=== PATIENT | female | born 1990 | race Caucasian/White ===

== ENCOUNTER 2019-02-13 16:58 | Observation (INO) ==
[2019-02-13] MEDS ORDERED: Ketorolac 15 MG/ML VIAL IVP ONE (20:16)
[2019-02-13] MEDS ORDERED: Ondansetron 4 MG/2 ML VIAL IVP ONE (20:16)
[2019-02-13] MEDS ORDERED: 0.9 % Sodium Chloride 1,000 ML IVC ONE (20:16)
[2019-02-13 20:47] LABS: Basophils % 0.2 %; Eosinophils % 0.2 %; Hematocrit 35.6 % (35.3-44.9); Hemoglobin 11.6 g/dL (11.5-15.4); Immature Granulocytes % 0.3 % (0-4); Lymphocytes # 1.5 K/mcL (0.6-4.6); Lymphocytes % 10.5 %; Mean Corpuscular HGB Conc 32.6 g/dL (31.6-35.5); Mean Corpuscular Hemoglobin 27.8 pg (28.0-33.3); Mean Corpuscular Volume 85.2 fL (83.0-100.0); Mean Platelet Volume 10.6 fL (9.4-12.4); Monocytes # 1.5 K/mcL (0.0-1.3); Monocytes % 10.5 %; Neutrophils # 11.1 K/mcL (1.6-8.9); Platelet Count 215 K/mcL (140-400); Red Blood Count 4.18 M/mcL (3.82-4.97); Red Cell Distribution Width 14.7 % (11.5-14.5); Segmented Neutrophils % 78.3 %; White Blood Count 14.2 K/mcL (4.3-11.1)
[2019-02-13 21:07] LABS: Alanine Aminotransferase 15 Units/L (7-52); Albumin 4.3 g/dL (3.5-5.7); Albumin/Globulin Ratio 1.4 (1.1-2.2); Alkaline Phosphatase 56 Units/L (34-104); Aspartate Amino Transferase 22 Units/L (13-39); BUN/Creatinine Ratio 17 (6-26); Bilirubin,Total 1.4 mg/dL (0.3-1.0); Blood Urea Nitrogen 14 mg/dL (6-20); Calcium 8.8 mg/dL (8.6-10.3); Carbon Dioxide 28 mEq/L (23-29); Chloride 96 mEq/L (98-107); Glucose 116 mg/dL (70-105); Osmolality,Calculated 285 (280-300); Potassium 3.6 mEq/L (3.5-5.1); Sodium 137 mEq/L (136-145); Total Protein 7.3 g/dL (6.4-8.9); eGFR For African Americans > 60 (> 60); eGFR For Non-African Americans > 60 (> 60)
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
--- NOTE | 2019-02-13 21:52 | Emergency Department Note ---
Disposition Clinical Impression: Right upper quadrant pain Nausea & vomiting Qualifiers: Vomiting type: unspecified Vomiting Intractability: unspecified Qualified Code(s): R11.2 - Nausea with vomiting, unspecified Disposition: Still a Patient Condition: Good Referrals: Mary Martinez DO [Primary Care Provider] - Forms: ED Satisfaction Letter, Work/School Release Time of Disposition: 01:00 General Adult HPI - General Chief complaint: ED General Medical Stated complaint: fever N/V Time Seen by Provider: 02/13/19 19:50 Source: patient Mode of arrival: ambulatory Limitations: no limitations - Related Data Home Medications Medication Instructions Recorded Confirmed Baclofen 5 mg PO DAILY 02/14/19 02/14/19 LORazepam [Ativan] 1 mg PO TID 02/14/19 02/14/19 Quetiapine Fumarate [Seroquel] 400 mg PO DAILY 02/14/19 02/14/19 Allergies Allergy/AdvReac Type Severity Reaction Status Date / Time ciprofloxacin [From Cipro] Allergy See Verified 05/05/18 15:12 Comments Penicillins Allergy See Verified 05/05/18 15:12 Comments vancomycin Allergy Cramping Verified 05/05/18 15:12 of the Muscles Past Medical History - Past Medical History Medical history: Reports: no medical history Psychiatric history: Reports: anxiety [employer]IL[employer] WORKER history: Reports: no [employer] WORKER history - Social History Smoking Status: Current every day smoker Smokeless Tobacco Status: No Alcohol use: Reports: none Drug use: Reports: opiates Physical Exam - General Limitations: no limitations General appearance: alert, in no apparent distress Course Vital Signs Temperature 97.3 F L 02/13/19 17:09 Pulse Rate 73 02/13/19 17:09 Respiratory Rate 20 02/13/19 17:09 Blood Pressure 112/70 02/13/19 17:09 O2 Sat by Pulse Oximetry 100 02/13/19 17:09 Temperature 97.3 F L 02/13/19 20:16 Pulse Rate 80 02/13/19 21:52 Respiratory Rate 16 02/13/19 21:52 Blood Pressure 107/73 02/13/19 21:52 O2 Sat by Pulse Oximetry 98 02/13/19 21:52 Oxygen Delivery Oxygen Delivery Room Air Medical Decision Making - Lab Data Result diagrams: 02/13/19 20:30 02/13/19 20:30 Lab Results 02/13/19 02/13/19 02/13/19 Range/Units 20:30 20:30 20:30 WBC 14.2 H (4.3-11.1) K/mcL RBC 4.18 (3.82-4.97) M/mcL Hgb 11.6 (11.5-15.4) g/dL Hct 35.6 (35.3-44.9) % MCV 85.2 (83.0-100.0) fL MCH 27.8 L (28.0-33.3) pg MCHC 32.6 (31.6-35.5) g/dL RDW 14.7 H (11.5-14.5) % Plt Count 215 (140-400) K/mcL MPV 10.6 (9.4-12.4) fL Immature Gran % 0.3 (0-4) % Seg Neutrophils % 78.3 % Lymphocytes % 10.5 % Monocytes % 10.5 % Eosinophils % 0.2 % Basophils % 0.2 % Neutrophils # 11.1 H (1.6-8.9) K/mcL Lymphocytes # 1.5 (0.6-4.6) K/mcL Monocytes # 1.5 H (0.0-1.3) K/mcL Eosinophils # 0.0 (0.0-0.6) K/mcL Basophils # 0.0 (0.0-0.2) K/mcL Sodium 137 (136-145) mEq/L Potassium 3.6 (3.5-5.1) mEq/L Chloride 96 L (98-107) mEq/L Carbon Dioxide 28 (23-29) mEq/L BUN 14 (6-20) mg/dL Creatinine 0.84 (0.60-1.20) mg/dL Est GFR ( Amer) > 60 (> 60) Est GFR (Non-Af Amer) > 60 (> 60) BUN/Creatinine Ratio 17 (6-26) Glucose 116 H (70-105) mg/dL Calculated Osmolality 285 (280-300) Calcium 8.8 (8.6-10.3) mg/dL Total Bilirubin 1.4 H (0.3-1.0) mg/dL AST 22 (13-39) Units/L ALT 15 (7-52) Units/L Alkaline Phosphatase 56 (34-104) Units/L Serum Total Protein 7.3 (6.4-8.9) g/dL Albumin 4.3 (3.5-5.7) g/dL Globulin 3.0 (2.4-3.5) g/dL Albumin/Globulin Ratio 1.4 (1.1-2.2) Lipase 13 (11-82) Units/L Urine Color (Yellow) Urine Clarity (Clear) Urine pH (5.0-8.0) pH Units Ur Specific [place] (1.010-1.025) Urine Protein (Neg-Trace) mg/dL Urine Glucose (UA) (Normal) mg/dL Urine Ketones (Negative) mg/dL Urine Blood (Negative) Urine Nitrite (Negative) Urine Bilirubin (Negative) Urine Urobilinogen (Normal) mg/dL Ur Leukocyte Esterase (Negative) Urine Microscopic RBC (0-3) per hpf Urine Microscopic WBC (0-3) per hpf Ur Squamous Epith Cells (None-Few) per lpf Urine Bacteria (None-Few) per hpf Hyaline Casts (None-Few) per lpf Ur Culture Indicated? (NO) Urine Test (Negative) Urine Opiates Screen (Jnxlzq=521) ng/mL Ur Buprenorphine Scrn (Cutoff=5) ng/mL Ur Barbiturates Screen (Vdodyp=596) ng/mL Ur Phencyclidine Scrn (Cutoff=25) ng/mL Ur Amphetamines Screen (Nqvlzd=7440) ng/mL U Benzodiazepines Scrn (Dyeytq=690) ng/mL Urine Cocaine Screen (Cutoff= 300) ng/mL U Marijuana (THC) Screen (Cutoff = 50) ng/mL Ur Drug Screen Interp Lyme Total Antibody (Negative) 02/13/19 02/14/19 02/14/19 Range/Units 20:30 00:01 00:01 WBC (4.3-11.1) K/mcL RBC (3.82-4.97) M/mcL Hgb (11.5-15.4) g/dL Hct (35.3-44.9) % MCV (83.0-100.0) fL MCH (28.0-33.3) pg MCHC (31.6-35.5) g/dL RDW (11.5-14.5) % Plt Count (140-400) K/mcL MPV (9.4-12.4) fL Immature Gran % (0-4) % Seg Neutrophils % % Lymphocytes % % Monocytes % % Eosinophils % % Basophils % % Neutrophils # (1.6-8.9) K/mcL Lymphocytes # (0.6-4.6) K/mcL Monocytes # (0.0-1.3) K/mcL Eosinophils # (0.0-0.6) K/mcL Basophils # (0.0-0.2) K/mcL Sodium (136-145) mEq/L Potassium (3.5-5.1) mEq/L Chloride (98-107) mEq/L Carbon Dioxide (23-29) mEq/L BUN (6-20) mg/dL Creatinine (0.60-1.20) mg/dL Est GFR ( Amer) (> 60) Est GFR (Non-Af Amer) (> 60) BUN/Creatinine Ratio (6-26) Glucose (70-105) mg/dL Calculated Osmolality (280-300) Calcium (8.6-10.3) mg/dL Total Bilirubin (0.3-1.0) mg/dL AST (13-39) Units/L ALT (7-52) Units/L Alkaline Phosphatase (34-104) Units/L Serum Total Protein (6.4-8.9) g/dL Albumin (3.5-5.7) g/dL Globulin (2.4-3.5) g/dL Albumin/Globulin Ratio (1.1-2.2) Lipase (11-82) Units/L Urine Color Dark Yellow (Yellow) Urine Clarity Clear (Clear) Urine pH 6.0 (5.0-8.0) pH Units Ur Specific [place] 1.024 (1.010-1.025) Urine Protein Trace (Neg-Trace) mg/dL Urine Glucose (UA) Normal (Normal) mg/dL Urine Ketones Trace H (Negative) mg/dL Urine Blood Trace H (Negative) Urine Nitrite Negative (Negative) Urine Bilirubin Negative (Negative) Urine Urobilinogen Normal (Normal) mg/dL Ur Leukocyte Esterase Trace H (Negative) Urine Microscopic RBC 5-15 H (0-3) per hpf Urine Microscopic WBC 5-15 H (0-3) per hpf Ur Squamous Epith Cells Many H (None-Few) per lpf Urine Bacteria None Seen (None-Few) per hpf Hyaline Casts None Seen (None-Few) per lpf Ur Culture Indicated? YES A (NO) Urine Test Negative (Negative) Urine Opiates Screen (Llbvif=066) ng/mL Ur Buprenorphine Scrn (Cutoff=5) ng/mL Ur Barbiturates Screen (Geyazs=030) ng/mL Ur Phencyclidine Scrn (Cutoff=25) ng/mL Ur Amphetamines Screen (Pgijxq=6015) ng/mL U Benzodiazepines Scrn (Azoqbl=237) ng/mL Urine Cocaine Screen (Cutoff= 300) ng/mL U Marijuana (THC) Screen (Cutoff = 50) ng/mL Ur Drug Screen Interp Lyme Total Antibody Negative (Negative) 02/14/19 Range/Units 00:01 WBC (4.3-11.1) K/mcL RBC (3.82-4.97) M/mcL Hgb (11.5-15.4) g/dL Hct (35.3-44.9) % MCV (83.0-100.0) fL MCH (28.0-33.3) pg MCHC (31.6-35.5) g/dL RDW (11.5-14.5) % Plt Count (140-400) K/mcL MPV (9.4-12.4) fL Immature Gran % (0-4) % Seg Neutrophils % % Lymphocytes % % Monocytes % % Eosinophils % % Basophils % % Neutrophils # (1.6-8.9) K/mcL Lymphocytes # (0.6-4.6) K/mcL Monocytes # (0.0-1.3) K/mcL Eosinophils # (0.0-0.6) K/mcL Basophils # (0.0-0.2) K/mcL Sodium (136-145) mEq/L Potassium (3.5-5.1) mEq/L Chloride (98-107) mEq/L Carbon Dioxide (23-29) mEq/L BUN (6-20) mg/dL Creatinine (0.60-1.20) mg/dL Est GFR ( Amer) (> 60) Est GFR (Non-Af Amer) (> 60) BUN/Creatinine Ratio (6-26) Glucose (70-105) mg/dL Calculated Osmolality (280-300) Calcium (8.6-10.3) mg/dL Total Bilirubin (0.3-1.0) mg/dL AST (13-39) Units/L ALT (7-52) Units/L Alkaline Phosphatase (34-104) Units/L Serum Total Protein (6.4-8.9) g/dL Albumin (3.5-5.7) g/dL Globulin (2.4-3.5) g/dL Albumin/Globulin Ratio (1.1-2.2) Lipase (11-82) Units/L Urine Color (Yellow) Urine Clarity (Clear) Urine pH (5.0-8.0) pH Units Ur Specific [place] (1.010-1.025) Urine Protein (Neg-Trace) mg/dL Urine Glucose (UA) (Normal) mg/dL Urine Ketones (Negative) mg/dL Urine Blood (Negative) Urine Nitrite (Negative) Urine Bilirubin (Negative) Urine Urobilinogen (Normal) mg/dL Ur Leukocyte Esterase (Negative) Urine Microscopic RBC (0-3) per hpf Urine Microscopic WBC (0-3) per hpf Ur Squamous Epith Cells (None-Few) per lpf Urine Bacteria (None-Few) per hpf Hyaline Casts (None-Few) per lpf Ur Culture Indicated? (NO) Urine Test (Negative) Urine Opiates Screen Positive H (Rlozvn=658) ng/mL Ur Buprenorphine Scrn Negative (Cutoff=5) ng/mL Ur Barbiturates Screen Negative (Srmclb=189) ng/mL Ur Phencyclidine Scrn Negative (Cutoff=25) ng/mL Ur Amphetamines Screen Positive H (Veshkc=2908) ng/mL U Benzodiazepines Scrn Negative (Gzsyqq=354) ng/mL Urine Cocaine Screen Negative (Cutoff= 300) ng/mL U Marijuana (THC) Screen Positive H (Cutoff = 50) ng/mL Ur Drug Screen Interp See Below Lyme Total Antibody (Negative) Attestation Statement - Attestation Attestation: I examined this patient and my medical decision-making was reviewed with the Resident Physician. I agree with the documented findings, disposition and treatment plan as described except to the extent set forth below. Patient 28-year-old female presents to the emergency department with chief complaint of generalized malaise and abdominal pain. Patient reports that she had multiple mosquito bites and then noticed that she started feeling very feverish and then noticed that she started having abdominal pain. Physical exam patient is awake and alert in mild discomfort. Abdomen soft there is tenderness to palpation in the right quadrant Medical decision-making laboratory studies were obtained patient have a mildly elevated bilirubin. Ultrasound showed evidence of thickened gallbladder wall and gallstones present and a sonographic Jain's was present. The patient's case was discussed with Dr. Love who is bonding agent for general surgery and he will evaluate the patient in the emergency department. He
[2019-02-13] MEDS ORDERED: Isovue-370 500 ML BOTTLE IVP ONE (23:28)
[2019-02-14 00:13] LABS: Bilirubin,Urine Negative (Negative); Blood,Urine Trace (Negative); Clarity,Urine Clear (Clear); Color,Urine Dark Yellow (Yellow); Glucose,Urine (UA) Normal (Normal); Ketones,Urine Trace mg/dL (Negative); Leukocyte Esterase,Urine Trace (Negative); Nitrite,Urine Negative (Negative); Protein,Urine Trace mg/dL (Neg-Trace); Specific Gravity,Urine 1.024 (1.010-1.025); Urobilinogen,Urine Normal (Normal)
[2019-02-14 00:15] LABS: Bacteria,Urine None Seen per hpf (None-Few); Hyaline Casts,Urine None Seen per lpf (None-Few); Squamous Epithelial Cell,Urine Many per lpf (None-Few)
[2019-02-14 00:35] LABS: Amphetamine Screen,Urine Positive ng/mL (Cutoff=1000); Barbiturate Screen,Urine Negative ng/mL (Cutoff=200); Benzodiazepines Screen,Urine Negative ng/mL (Cutoff=200); Cannabinoid Screen,Urine Positive ng/mL (Cutoff = 50); Cocaine Screen,Urine Negative ng/mL (Cutoff= 300); Opiate Screen,Urine Positive ng/mL (Cutoff=300); Phencyclidine Screen,Urine Negative ng/mL (Cutoff=25)
--- NOTE | 2019-02-14 00:50 | Emergency Department Note ---
Disposition Clinical Impression: Right upper quadrant pain, Elevated bilirubin Nausea & vomiting Qualifiers: Vomiting type: unspecified Vomiting Intractability: unspecified Qualified Code(s): R11.2 - Nausea with vomiting, unspecified Disposition: Admitted As Inpatient Condition: Good Time of Disposition: 05:18 Abdominal Pain HPI - General Chief Complaint: ED General Medical Stated Complaint: fever N/V Time Seen by Provider: 02/13/19 19:50 Source: patient Mode of arrival: ambulatory Limitations: no limitations Nursing Notes Reviewed: Yes Vital Signs Reviewed: Yes - History of Present Illness HPI Narrative: Patient was signed out to me by daytime physicians Dr. Traylor and Dr. Lombardi pending CT scan results and consultation with surgical specialists. Please see their note for further details. Pt Subjective Complaint: abdominal pain Pain Scale: 7 - Related Data Home Medications Medication Instructions Recorded Confirmed Baclofen 5 mg PO DAILY 02/14/19 02/14/19 LORazepam [Ativan] 1 mg PO TID 02/14/19 02/14/19 Quetiapine Fumarate [Seroquel] 400 mg PO DAILY 02/14/19 02/14/19 Allergies Allergy/AdvReac Type Severity Reaction Status Date / Time ciprofloxacin [From Cipro] Allergy See Verified 02/14/19 02:20 Comments Penicillins Allergy See Verified 02/14/19 02:20 Comments vancomycin Allergy Cramping Verified 02/14/19 02:20 of the Muscles All systems ED: reviewed and negative except as stated. 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 Traylor and Dr. Lombardi pending CT scan results and consultation with surgical specialists. Please see their note for further details. Imani is a 28-year-old female history of hepatitis C to presents emergency department with worsening right upper quadrant pain. Severe pain in the right upper quadrant with associated nausea vomiting. She has not been able to tolerate anything bilateral. She has a history of gallstones. Labs and images were performed here which showed a leukocytosis with elevated bilirubin of 1.4. Ultrasound revealed gallbladder wall thickening with concern for cholecystitis. Surgical specialty service was consulted and requested CT scan and possible admission to medicine. On my valuation she has mild tenderness to the right u pper quadrant by her abdomen is otherwise soft without any distention or rigidity. She did not have any Jain sign. No evidence of jaundice or square etc. She is alert and oriented. She is warm to the touch. CT scan with oral and IV contrast performed showed cholelithiasis. Dr. Kate zaragoza surgical specialists was notified of the results and will admit to his service. He does not believe this is a surgical emergency at this time and likely a chronic condition. He requests a hepatitis panel. Impression is right upper quadrant abdominal pain with cholelithiasis. Vital Signs Temperature 97.3 F L 02/13/19 17:09 Pulse Rate 73 02/13/19 17:09 Respiratory Rate 20 02/13/19 17:09 Blood Pressure 112/70 02/13/19 17:09 O2 Sat by Pulse Oximetry 100 02/13/19 17:09 Temperature 97.3 F L 02/13/19 20:16 Pulse Rate 78 02/14/19 02:21 Respiratory Rate 18 02/14/19 05:39 Blood Pressure 104/74 02/14/19 05:39 O2 Sat by Pulse Oximetry 99 02/14/19 02:21 Oxygen Delivery Oxygen Delivery Room Air Abdominal Pain - MDM Narrative Medical decision making narrative: Patient was discussed with my attending physician who agrees with ED management and final disposition. They independently evaluated the patient. Please refer to their attestation to this encounter for additional information. This note was generated by [employer] voice recognition software and as a result grammatical or spelling errors may occur using this program. - Medical Records Medical records reviewed: Yes I reviewed the patient's medical records. - Lab Data Lab results reviewed: Yes I reviewed the patient's lab results. Result diagrams: 02/13/19 20:30 02/13/19 20:30 Lab Results 02/13/19 02/13/19 02/13/19 Range/Units 20:30 20:30 20:30 WBC 14.2 H (4.3-11.1) K/mcL RBC 4.18 (3.82-4.97) M/mcL Hgb 11.6 (11.5-15.4) g/dL Hct 35.6 (35.3-44.9) % MCV 85.2 (83.0-100.0) fL MCH 27.8 L (28.0-33.3) pg MCHC 32.6 (31.6-35.5) g/dL RDW 14.7 H (11.5-14.5) % Plt Count 215 (140-400) K/mcL MPV 10.6 (9.4-12.4) fL Immature Gran % 0.3 (0-4) % Seg Neutrophils % 78.3 % Lymphocytes % 10.5 % Monocytes % 10.5 % Eosinophils % 0.2 % Basophils % 0.2 % Neutrophils # 11.1 H (1.6-8.9) K/mcL Lymphocytes # 1.5 (0.6-4.6) K/mcL Monocytes # 1.5 H (0.0-1.3) K/mcL Eosinophils # 0.0 (0.0-0.6) K/mcL Basophils # 0.0 (0.0-0.2) K/mcL Sodium 137 (136-145) mEq/L Potassium 3.6 (3.5-5.1) mEq/L Chloride 96 L (98-107) mEq/L Carbon Dioxide 28 (23-29) mEq/L BUN 14 (6-20) mg/dL Creatinine 0.84 (0.60-1.20) mg/dL Est GFR ( Amer) > 60 (> 60) Est GFR (Non-Af Amer) > 60 (> 60) BUN/Creatinine Ratio 17 (6-26) Glucose 116 H (70-105) mg/dL Calculated Osmolality 285 (280-300) Calcium 8.8 (8.6-10.3) mg/dL Total Bilirubin 1.4 H (0.3-1.0) mg/dL Direct Bilirubin (0.0-0.2) mg/dL Indirect Bilirubin (0.0-1.2) mg/dL AST 22 (13-39) Units/L ALT 15 (7-52) Units/L Alkaline Phosphatase 56 (34-104) Units/L Serum Total Protein 7.3 (6.4-8.9) g/dL Albumin 4.3 (3.5-5.7) g/dL Globulin 3.0 (2.4-3.5) g/dL Albumin/Globulin Ratio 1.4 (1.1-2.2) Lipase 13 (11-82) Units/L Urine Color (Yellow) Urine Clarity (Clear) Urine pH (5.0-8.0) pH Units Ur Specific [place] (1.010-1.025) Urine Protein (Neg-Trace) mg/dL Urine Glucose (UA) (Normal) mg/dL Urine Ketones (Negative) mg/dL Urine Blood (Negative) Urine Nitrite (Negative) Urine Bilirubin (Negative) Urine Urobilinogen (Normal) mg/dL Ur Leukocyte Esterase (Negative) Urine Microscopic RBC (0-3) per hpf Urine Microscopic WBC (0-3) per hpf Ur Squamous Epith Cells (None-Few) per lpf Urine Bacteria (None-Few) per hpf Hyaline Casts (None-Few) per lpf Ur Culture Indicated? (NO) Urine Test (Negative) Urine Opiates Screen (Eefiyn=448) ng/mL Ur Buprenorphine Scrn (Cutoff=5) ng/mL Ur Barbiturates Screen (Jmcfnz=103) ng/mL Ur Phencyclidine Scrn (Cutoff=25) ng/mL Ur Amphetamines Screen (Hykozo=8179) ng/mL U Benzodiazepines Scrn (Uxgodd=502) ng/mL Urine Cocaine Screen (Cutoff= 300) ng/mL U Marijuana (THC) Screen (Cutoff = 50) ng/mL Ur Drug Screen Interp Lyme Total Antibody (Negative) 02/13/19 02/14/19 02/14/19 Range/Units 20:30 00:01 00:01 WBC (4.3-11.1) K/mcL RBC (3.82-4.97) M/mcL Hgb (11.5-15.4) g/dL Hct (35.3-44.9) % MCV (83.0-100.0) fL MCH (28.0-33.3) pg MCHC (31.6-35.5) g/dL RDW (11.5-14.5) % Plt Count (140-400) K/mcL MPV (9.4-12.4) fL Immature Gran % (0-4) % Seg Neutrophils % % Lymphocytes % % Monocytes % % Eosinophils % % Basophils % % Neutrophils # (1.6-8.9) K/mcL Lymphocytes # (0.6-4.6) K/mcL Monocytes # (0.0-1.3) K/mcL Eosinophils # (0.0-0.6) K/mcL Basophils # (0.0-0.2) K/mcL Sodium (136-145) mEq/L Potassium (3.5-5.1) mEq/L Chloride (98-107) mEq/L Carbon Dioxide (23-29) mEq/L BUN (6-20) mg/dL Creatinine (0.60-1.20) mg/dL Est GFR ( Amer) (> 60) Est GFR (Non-Af Amer) (> 60) BUN/Creatinine Ratio (6-26) Glucose (70-105) mg/dL Calculated Osmolality (280-300) Calcium (8.6-10.3) mg/dL Total Bilirubin (0.3-1.0) mg/dL Direct Bilirubin (0.0-0.2) mg/dL Indirect Bilirubin (0.0-1.2) mg/dL AST (13-39) Units/L ALT (7-52) Units/L Alkaline Phosphatase (34-104) Units/L Serum Total Protein (6.4-8.9) g/dL Albumin (3.5-5.7) g/dL Globulin (2.4-3.5) g/dL Albumin/Globulin Ratio (1.1-2.2) Lipase (11-82) Units/L Urine Color Dark Yellow (Yellow) Urine Clarity Clear (Clear) Urine pH 6.0 (5.0-8.0) pH Units Ur Specific [place] 1.024 (1.010-1.025) Urine Protein Trace (Neg-Trace) mg/dL Urine Glucose (UA) Normal (Normal) mg/dL Urine Ketones Trace H (Negative) mg/dL Urine Blood Trace H (Negative) Urine Nitrite Negative (Negative) Urine Bilirubin Negative (Negative) Urine Urobilinogen Normal (Normal) mg/dL Ur Leukocyte Esterase Trace H (Negative) Urine Microscopic RBC 5-15 H (0-3) per hpf Urine Microscopic WBC 5-15 H (0-3) per hpf Ur Squamous Epith Cells Many H (None-Few) per lpf Urine Bacteria None Seen (None-Few) per hpf Hyaline Casts None Seen (None-Few) per lpf Ur Culture Indicated? YES A (NO) Urine Test Negative (Negative) Urine Opiates Screen (Iexpvc=723) ng/mL Ur Buprenorphine Scrn (Cutoff=5) ng/mL Ur Barbiturates Screen (Pfknxf=720) ng/mL Ur Phencyclidine Scrn (Cutoff=25) ng/mL Ur Amphetamines Screen (Leqpze=4163) ng/mL U Benzodiazepines Scrn (Fxlnoa=787) ng/mL Urine Cocaine Screen (Cutoff= 300) ng/mL U Marijuana (THC) Screen (Cutoff = 50) ng/mL Ur Drug Screen Interp Lyme Total Antibody Negative (Negative) 02/14/19 02/14/19 Range/Units 00:01 03:56 WBC (4.3-11.1) K/mcL RBC (3.82-4.97) M/mcL Hgb (11.5-15.4) g/dL Hct (35.3-44.9) % MCV (83.0-100.0) fL MCH (28.0-33.3) pg MCHC (31.6-35.5) g/dL RDW (11.5-14.5) % Plt Count (140-400) K/mcL MPV (9.4-12.4) fL Immature Gran % (0-4) % Seg Neutrophils % % Lymphocytes % % Monocytes % % Eosinophils % % Basophils % % Neutrophils # (1.6-8.9) K/mcL Lymphocytes # (0.6-4.6) K/mcL Monocytes # (0.0-1.3) K/mcL Eosinophils # (0.0-0.6) K/mcL Basophils # (0.0-0.2) K/mcL Sodium (136-145) mEq/L Potassium (3.5-5.1) mEq/L Chloride (98-107) mEq/L Carbon Dioxide (23-29) mEq/L BUN (6-20) mg/dL Creatinine (0.60-1.20) mg/dL Est GFR ( Amer) (> 60) Est GFR (Non-Af Amer) (> 60) BUN/Creatinine Ratio (6-26) Glucose (70-105) mg/dL Calculated Osmolality (280-300) Calcium (8.6-10.3) mg/dL Total Bilirubin 0.8 (0.3-1.0) mg/dL Direct Bilirubin 0.2 (0.0-0.2) mg/dL Indirect Bilirubin 0.6 (0.0-1.2) mg/dL AST 19 (13-39) Units/L ALT 14 (7-52) Units/L Alkaline Phosphatase 50 (34-104) Units/L Serum Total Protein 6.2 L (6.4-8.9) g/dL Albumin 3.8 (3.5-5.7) g/dL Globulin 2.4 (2.4-3.5) g/dL Albumin/Globulin Ratio 1.6 (1.1-2.2) Lipase (11-82) Units/L Urine Color (Yellow) Urine Clarity (Clear) Urine pH (5.0-8.0) pH Units Ur Specific [place] (1.010-1.025) Urine Protein (Neg-Trace) mg/dL Urine Glucose (UA) (Normal) mg/dL Urine Ketones (Negative) mg/dL Urine Blood (Negative) Urine Nitrite (Negative) Urine Bilirubin (Negative) Urine Urobilinogen (Normal) mg/dL Ur Leukocyte Esterase (Negative) Urine Microscopic RBC (0-3) per hpf Urine Microscopic WBC (0-3) per hpf Ur Squamous Epith Cells (None-Few) per lpf Urine Bacteria (None-Few) per hpf Hyaline Casts (None-Few) per lpf Ur Culture Indicated? (NO) Urine Test (Negative) Urine Opiates Screen Positive H (Atgsrq=507) ng/mL Ur Buprenorphine Scrn Negative (Cutoff=5) ng/mL Ur Barbiturates Screen Negative (Fpivse=340) ng/mL Ur Phencyclidine Scrn Negative (Cutoff=25) ng/mL Ur Amphetamines Screen Positive H (Fqxayh=0087) ng/mL U Benzodiazepines Scrn Negative (Hwiglz=052) ng/mL Urine Cocaine Screen Negative (Cutoff= 300) ng/mL U Marijuana (THC) Screen Positive H (Cutoff = 50) ng/mL Ur Drug Screen Interp See Below Lyme Total Antibody (Negative) - Radiology Data Radiology results reviewed: Yes I reviewed the patient's radiology results. Gallbladder Ultrasound 02/13/19 20:16 IMPRESSION: Gallstones in the gallbladder with borderline gallbladder wall thickening and positive sonographic Jain sign. In the appropriate clinical setting, findings may be consistent with cholecystitis. A nuclear medicine hepatobiliary scan is recommended for further evaluation. Fatty infiltration of the liver D/ / Reginaldo Hyman MD / Reginalod Hyman MD Interpreting Provider: Reginaldo Hyman MD Abdomen/Pelvis CT 02/14/19 00:00 IMPRESSION: Chronic cholelithiasis. Gastroesophageal reflux. Mild thickening of the wall of distal esophagus. Suggest upper endoscopy in the near future on nonurgent basis. D/ / Zina Todd MD / Zina Todd MD Interpreting Provider: Zina Todd MD Attestation Statement - Attestation Attestation: I, Raji Espinoza MD, personally evaluated this patient and discussed their management with the resident physician. I reviewed the resident's note and agree with the documented findings, medical decision making, and plan of care. This patient was signed out at shift change from Dr. Lombardi and Dr. Traylor. Please refer to their notes for complete details of the history and physical examination. Patient had a workup for nausea vomiting and fever and right upper quadrant pain. Ultrasound was obtained and cholecystitis was suspected. At shift change she is awaiting a CT of the abdomen and pelvis with IV and oral c ontrast. She was evaluated by the surgeon, Dr. Love, who requested the CT. On examination patient is a well-developed well-nourished female in no acute distress. She is alert and oriented 3. There is no cyanosis or diaphoresis. Breath sounds are clear and equal bilaterally. Heart regular rate and rhythm. Abdomen is soft with normal bowel sounds. There is mild right upper quadrant tenderness on direct palpation. CT showed chronic cholelithiasis. Patient was admitted to the surgical service by Dr. Love.
[2019-02-14 04:28] LABS: Albumin 3.8 g/dL (3.5-5.7); Albumin/Globulin Ratio 1.6 (1.1-2.2); Bilirubin,Direct 0.2 mg/dL (0.0-0.2); Bilirubin,Indirect 0.6 mg/dL (0.0-1.2); Bilirubin,Total 0.8 mg/dL (0.3-1.0); Globulin 2.4 g/dL (2.4-3.5); Total Protein 6.2 g/dL (6.4-8.9)
[2019-02-14] MEDS ORDERED: Ondansetron ODT 4 MG TAB.RAPDIS SL PRN (06:50)
[2019-02-14] MEDS ORDERED: 0.9 % Sodium Chloride 1,000 ML IVC SCH (07:00)
[2019-02-14 07:28] LABS: Hepatitis B Surface Antigen Nonreactive (Nonreactive)
[2019-02-14 07:57] LABS: Hepatitis B Core IgM Nonreactive (Nonreactive)
[2019-02-14 07:59] LABS: Hepatitis A Antibody IgM Nonreactive (Nonreactive)
[2019-02-14 09:58] LABS: Hepatitis C Virus Antibody Reactive (Nonreactive)
[2019-02-14] MEDS ORDERED: Acetaminophen 325 MG TABLET PO PRN (10:48)
[2019-02-14 10:55] LABS: Basophils % 0.4 %; Eosinophils # 0.1 K/mcL (0.0-0.6); Eosinophils % 1.3 %; Hematocrit 31.2 % (35.3-44.9); Hemoglobin 10.2 g/dL (11.5-15.4); Immature Granulocytes % 0.1 % (0-4); Lymphocytes # 1.5 K/mcL (0.6-4.6); Mean Corpuscular HGB Conc 32.7 g/dL (31.6-35.5); Mean Corpuscular Hemoglobin 27.9 pg (28.0-33.3); Mean Corpuscular Volume 85.5 fL (83.0-100.0); Monocytes # 0.9 K/mcL (0.0-1.3); Monocytes % 13.9 %; Neutrophils # 4.2 K/mcL (1.6-8.9); Platelet Count 191 K/mcL (140-400); Red Blood Count 3.65 M/mcL (3.82-4.97); Red Cell Distribution Width 14.5 % (11.5-14.5); Segmented Neutrophils % 62.3 %; White Blood Count 6.7 K/mcL (4.3-11.1)
[2019-02-14 11:22] LABS: Alanine Aminotransferase 14 Units/L (7-52); Albumin 3.6 g/dL (3.5-5.7); Albumin/Globulin Ratio 1.6 (1.1-2.2); Alkaline Phosphatase 46 Units/L (34-104); Aspartate Amino Transferase 19 Units/L (13-39); BUN/Creatinine Ratio 15 (6-26); Bilirubin,Total 0.7 mg/dL (0.3-1.0); Blood Urea Nitrogen 13 mg/dL (6-20); Carbon Dioxide 29 mEq/L (23-29); Chloride 97 mEq/L (98-107); Globulin 2.2 g/dL (2.4-3.5); Glucose 100 mg/dL (70-105); Osmolality,Calculated 274 (280-300); Potassium 3.3 mEq/L (3.5-5.1); Sodium 132 mEq/L (136-145); Total Protein 5.8 g/dL (6.4-8.9); eGFR For African Americans > 60 (> 60); eGFR For Non-African Americans > 60 (> 60)
--- NOTE | 2019-02-14 13:08 | Acute Care Surgery H&P ---
Date of Encounter: 02/14/19 Time of Encounter: 13:01 Assessment and Plan (1) Right upper quadrant pain Current Visit: Yes Status: Acute 28F with cholelithiaiss, no acute cholecystitis; currently tolerating CLD; currently positive for three ilicit drugs ADAT okay for PO abx x 7 days if tolerates diet, then okay to follow up in my office in 1-2 weeks for elective cholecystectomy hep c panel The assessment and plan as outlined above was discussed with the patient and/or family members who expressed understanding and agreement. All questions were ans wered. History of Present Illness Chief complaint: abdominal pain HPI: Ms. Kulkarni is a 28 year old female PMH significant for prior drug abuse (narcotics), hepatitis C (never been treated), recent incarceration as recent as 6 months ago who has a long standing history of RUQ pain with radiation to her right shoulder. When talking with the patient she is unable to definitively relate her pain to food. In addition reports a fever of 102. A CT scan was obtained which demonstrated cholelithiasis and mild thickening of the ga llbladder wall. General surgery was consulted for management recommendations. Of note, she did test positive for THC, amphetamine and opiates. Past Med Surg Social Fam HX - Past Medical History Medical history: no medical history Additional medical history: c4 c7 fusion Psychiatric history: anxiety - Past Surgical History Additional surgical history: c-4-c-7 fusion - Social History Smoking Status: Current every day smoker Smokeless Tobacco Status: No Alcohol use: none Drug use: opiates - Additional Family History Additional family history: non contributory Medications and Allergies Baclofen 5 mg PO DAILY 02/14/19 [History] LORazepam [Ativan] 1 mg PO TID 02/14/19 [History] Quetiapine Fumarate [Seroquel] 400 mg PO DAILY 02/14/19 [History] Allergy/AdvReac Type Severity Reaction Status Date / Time ciprofloxacin [From Cipro] Allergy See Verified 02/14/19 02:20 Comments Penicillins Allergy See Verified 02/14/19 02:20 Comments vancomycin Allergy Cramping Verified 02/14/19 02:20 of the Muscles Review of Systems All systems PM: 12 point ROS negative besides HPI findings General Surgery Exam Initial Vital Signs Temp Pulse Resp BP Pulse Ox 97.3 F L 73 20 112/70 100 02/13/19 17:09 02/13/19 17:09 02/13/19 17:09 02/13/19 17:09 02/13/19 17:09 - General physical appearance no distress - Eyes other (no scleral icterus) - Respiratory normal expansion, normal respiratory effort - Cardiovascular Cardiovascular exam: Present: RRR - Abdomen Abdomen general surgery: Present: soft, tender (non peritoneal) Abdominal Tenderness: Present: RUQ - Integumentary Integumentary general surgery: Present: warm and dry, no abnormal pigmentation - Neurologic Present: CN 2-12 grossly intact - Musculoskeletal Present: normal posture - Psychiatric Psychiatric general surgery: Present: A&Ox3 Results - Labs 02/14/19 10:32 02/14/19 10:32 Abnormal lab results WBC 14.2 K/mcL (4.3-11.1) H 02/13/19 20:30 RBC 3.65 M/mcL (3.82-4.97) L 02/14/19 10:32 Hgb 10.2 g/dL (11.5-15.4) L 02/14/19 10:32 Hct 31.2 % (35.3-44.9) L 02/14/19 10:32 MCH 27.9 pg (28.0-33.3) L 02/14/19 10:32 RDW 14.7 % (11.5-14.5) H 02/13/19 20:30 Neutrophils # 11.1 K/mcL (1.6-8.9) H 02/13/19 20:30 Monocytes # 1.5 K/mcL (0.0-1.3) H 02/13/19 20:30 Sodium 132 mEq/L (136-145) L 02/14/19 10:32 Potassium 3.3 mEq/L (3.5-5.1) L 02/14/19 10:32 Chloride 97 mEq/L (98-107) L 02/14/19 10:32 Glucose 116 mg/dL (70-105) H 02/13/19 20:30 Calculated Osmolality 274 (280-300) L 02/14/19 10:32 Calcium 8.0 mg/dL (8.6-10.3) L 02/14/19 10:32 Total Bilirubin 1.4 mg/dL (0.3-1.0) H 02/13/19 20:30 Serum Total Protein 5.8 g/dL (6.4-8.9) L 02/14/19 10:32 Globulin 2.2 g/dL (2.4-3.5) L 02/14/19 10:32 Urine Ketones Trace mg/dL (Negative) H 02/14/19 00:01 Urine Blood Trace (Negative) H 02/14/19 00:01 Ur Leukocyte Esterase Trace (Negative) H 02/14/19 00:01 Urine Microscopic RBC 5-15 per hpf (0-3) H 02/14/19 00:01 Urine Microscopic WBC 5-15 per hpf (0-3) H 02/14/19 00:01 Ur Squamous Epith Cells Many per lpf (None-Few) H 02/14/19 00:01 Ur Culture Indicated? YES (NO) A 02/14/19 00:01 Urine Opiates Screen Positive ng/mL (Oknfip=518) H 02/14/19 00:01 Ur Amphetamines Screen Positive ng/mL (Zitveh=2761) H 02/14/19 00:01 U Marijuana (THC) Screen Positive ng/mL (Cutoff = 50) H 02/14/19 00:01 Hepatitis C Ab Screen Reactive (Nonreactive) H 02/13/19 05:17 Diabetes panel 02/13/19 02/14/19 02/14/19 Range/Units 20:30 03:56 10:32 Sodium 137 132 L (136-145) mEq/L Potassium 3.6 3.3 L (3.5-5.1) mEq/L Chloride 96 L 97 L (98-107) mEq/L Carbon Dioxide 28 29 (23-29) mEq/L BUN 14 13 (6-20) mg/dL Creatinine 0.84 0.88 (0.60-1.20) mg/dL Glucose 116 H 100 (70-105) mg/dL Calcium 8.8 8.0 L (8.6-10.3) mg/dL AST 22 19 19 (13-39) Units/L ALT 15 14 14 (7-52) Units/L Alkaline Phosphatase 56 50 46 (34-104) Units/L Albumin 4.3 3.8 3.6 (3.5-5.7) g/dL Calcium panel 02/13/19 02/14/19 02/14/19 Range/Units 20:30 03:56 10:32 Calcium 8.8 8.0 L (8.6-10.3) mg/dL Albumin 4.3 3.8 3.6 (3.5-5.7) g/dL Pituitary panel 02/13/19 02/14/19 Range/Units 20:30 10:32 Sodium 137 132 L (136-145) mEq/L Potassium 3.6 3.3 L (3.5-5.1) mEq/L Chloride 96 L 97 L (98-107) mEq/L Carbon Dioxide 28 29 (23-29) mEq/L BUN 14 13 (6-20) mg/dL Creatinine 0.84 0.88 (0.60-1.20) mg/dL Glucose 116 H 100 (70-105) mg/dL Calcium 8.8 8.0 L (8.6-10.3) mg/dL Adrenal panel 02/13/19 02/14/19 02/14/19 Range/Units 20:30 03:56 10:32 Sodium 137 132 L (136-145) mEq/L Potassium 3.6 3.3 L (3.5-5.1) mEq/L Chloride 96 L 97 L (98-107) mEq/L Carbon Dioxide 28 29 (23-29) mEq/L BUN 14 13 (6-20) mg/dL Creatinine 0.84 0.88 (0.60-1.20) mg/dL Glucose 116 H 100 (70-105) mg/dL Calcium 8.8 8.0 L (8.6-10.3) mg/dL Total Bilirubin 1.4 H 0.8 0.7 (0.3-1.0) mg/dL AST 22 19 19 (13-39) Units/L ALT 15 14 14 (7-52) Units/L Alkaline Phosphatase 56 50 46 (34-104) Units/L Albumin 4.3 3.8 3.6 (3.5-5.7) g/dL All other labs normal. - Imaging CT scan - abdomen: report reviewed, image reviewed CT scan - pelvis: report reviewed, image reviewed
--- NOTE | 2019-02-14 13:19 | Discharge Summary ---
Orders not resulted at time of discharge: Pending orders 02/14/19 00:01 Culture,Urine [RM] Stat 02/14/19 10:32 Hepatitis C Qnt Reflx Genotype Routine Hepatitis C Virus Antibody Routine Date of Encounter: 02/14/19 Time of Encounter: 13:15 - Discharge Diagnosis (1) Right upper quadrant pain Priority: Primary Status: Acute Comments: 28F with RUQ; currently tolerating a diet; also with current positive drug tests; can plan for elective surgery as she is not acutely ill; diet as tolerated PO abx (5 days of augmentin follow up in one week in my clinic; General Surgery Exam Initial Vital Signs Temp Pulse Resp BP Pulse Ox 97.3 F L 73 20 112/70 100 02/13/19 17:09 02/13/19 17:09 02/13/19 17:09 02/13/19 17:09 02/13/19 17:09 - General physical appearance no distress - Eyes other (no scleral icterus) - Respiratory normal expansion, normal respiratory effort - Cardiovascular Cardiovascular exam: Present: RRR - Abdomen Abdomen general surgery: Present: soft, tender (non peritoneal, improved) - Integumentary Integumentary general surgery: Present: warm and dry, no abnormal pigmentation - Neurologic Present: CN 2-12 grossly intact - Musculoskeletal Present: normal posture - Psychiatric Psychiatric general surgery: Present: A&Ox3 - Hospital Course Hospital course: Ms. Kulkarni is a 28 year old female - Time Spent with Patient Total time spent providing and/or coordinating discharge services: Greater than 30 minutes - Discharge Medications Prescriptions: New Amoxicillin/Clavulanate [Augmentin] 875 mg PO BIDWM 5 Days #10 tablet Continued LORazepam [Ativan] 1 mg PO TID Baclofen 5 mg PO DAILY Quetiapine Fumarate [Seroquel] 400 mg PO DAILY Home Medications: Amoxicillin/Clavulanate [Augmentin] 875 mg PO BIDWM 5 Days #10 tablet 02/14/19 [Rx] Baclofen 5 mg PO DAILY 02/14/19 [History] LORazepam [Ativan] 1 mg PO TID 02/14/19 [History] Quetiapine Fumarate [Seroquel] 400 mg PO DAILY 02/14/19 [History] Allergies/Adverse Reactions: Allergy/AdvReac Type Severity Reaction Status Date / Time ciprofloxacin [From Cipro] Allergy See Verified 02/14/19 02:20 Comments Penicillins Allergy See Verified 02/14/19 02:20 Comments vancomycin Allergy Cramping Verified 02/14/19 02:20 of the Muscles Date of admission: 02/14/19 05:15 Primary care physician: Mary Martinez Consults: 02/13/19 23:28 Consult to Surgery [CONS] Stat Consulting Provider: Acute Care Surgery Reason for Consult: RUQ abdominal pain Time Notified: 23:29 Call Completed: Yes Discharging clinician: Brayden Love Anticipated date of discharge: 02/14/19 Labs on day of discharge: Labs from last 24 hours 02/14/19 02/14/19 02/14/19 10:32 10:32 03:56 WBC 6.7 D RBC 3.65 L Hgb 10.2 L Hct 31.2 L MCV 85.5 MCH 27.9 L MCHC 32.7 RDW 14.5 Plt Count 191 MPV 11.0 Immature Gran % 0.1 Seg Neutrophils % 62.3 Lymphocytes % 22.0 Monocytes % 13.9 Eosinophils % 1.3 Basophils % 0.4 Neutrophils # 4.2 Lymphocytes # 1.5 Monocytes # 0.9 Eosinophils # 0.1 Basophils # 0.0 Sodium 132 L Potassium 3.3 L Chloride 97 L Carbon Dioxide 29 BUN 13 Creatinine 0.88 Est GFR ( Amer) > 60 Est GFR (Non-Af Amer) > 60 BUN/Creatinine Ratio 15 Glucose 100 Calculated Osmolality 274 L Calcium 8.0 L Total Bilirubin 0.7 0.8 Direct Bilirubin 0.2 Indirect Bilirubin 0.6 AST 19 19 ALT 14 14 Alkaline Phosphatase 46 50 Serum Total Protein 5.8 L 6.2 L Albumin 3.6 3.8 Globulin 2.2 L 2.4 Albumin/Globulin Ratio 1.6 1.6 Lipase Urine Color Urine Clarity Urine pH Ur Specific [place] Urine Protein Urine Glucose (UA) Urine Ketones Urine Blood Urine Nitrite Urine Bilirubin Urine Urobilinogen Ur Leukocyte Esterase Urine Microscopic RBC Urine Microscopic WBC Ur Squamous Epith Cells Urine Bacteria Hyaline Casts Ur Culture Indicated? Urine Test Urine Opiates Screen Ur Buprenorphine Scrn Ur Barbiturates Screen Ur Phencyclidine Scrn Ur Amphetamines Screen U Benzodiazepines Scrn Urine Cocaine Screen U Marijuana (THC) Screen Ur Drug Screen Interp Lyme Total Antibody Hepatitis A IgM Ab Hep Bs Antigen Hep B Core IgM Ab Hepatitis C Ab Screen 02/14/19 02/14/19 02/14/19 00:01 00:01 00:01 WBC RBC Hgb Hct MCV MCH MCHC RDW Plt Count MPV Immature Gran % Seg Neutrophils % Lymphocytes % Monocytes % Eosinophils % Basophils % Neutrophils # Lymphocytes # Monocytes # Eosinophils # Basophils # Sodium Potassium Chloride Carbon Dioxide BUN Creatinine Est GFR ( Amer) Est GFR (Non-Af Amer) BUN/Creatinine Ratio Glucose Calculated Osmolality Calcium Total Bilirubin Direct Bilirubin Indirect Bilirubin AST ALT Alkaline Phosphatase Serum Total Protein Albumin Globulin Albumin/Globulin Ratio Lipase Urine Color Dark Yellow Urine Clarity Clear Urine pH 6.0 Ur Specific [place] 1.024 Urine Protein Trace Urine Glucose (UA) Normal Urine Ketones Trace H Urine Blood Trace H Urine Nitrite Negative Urine Bilirubin Negative Urine Urobilinogen Normal Ur Leukocyte Esterase Trace H Urine Microscopic RBC 5-15 H Urine Microscopic WBC 5-15 H Ur Squamous Epith Cells Many H Urine Bacteria None Seen Hyaline Casts None Seen Ur Culture Indicated? YES A Urine Test Negative Urine Opiates Screen Positive H Ur Buprenorphine Scrn Negative Ur Barbiturates Screen Negative Ur Phencyclidine Scrn Negative Ur Amphetamines Screen Positive H U Benzodiazepines Scrn Negative Urine Cocaine Screen Negative U Marijuana (THC) Screen Positive H Ur Drug Screen Interp See Below Lyme Total Antibody Hepatitis A IgM Ab Hep Bs Antigen Hep B Core IgM Ab Hepatitis C Ab Screen 02/13/19 02/13/19 02/13/19 20:30 20:30 20:30 WBC RBC Hgb Hct MCV MCH MCHC RDW Plt Count MPV Immature Gran % Seg Neutrophils % Lymphocytes % Monocytes % Eosinophils % Basophils % Neutrophils # Lymphocytes # Monocytes # Eosinophils # Basophils # Sodium 137 Potassium 3.6 Chloride 96 L Carbon Dioxide 28 BUN 14 Creatinine 0.84 Est GFR ( Amer) > 60 Est GFR (Non-Af Amer) > 60 BUN/Creatinine Ratio 17 Glucose 116 H Calculated Osmolality 285 Calcium 8.8 Total Bilirubin 1.4 H Direct Bilirubin Indirect Bilirubin AST 22 ALT 15 Alkaline Phosphatase 56 Serum Total Protein 7.3 Albumin 4.3 Globulin 3.0 Albumin/Globulin Ratio 1.4 Lipase 13 Urine Color Urine Clarity Urine pH Ur Specific [place] Urine Protein Urine Glucose (UA) Urine Ketones Urine Blood Urine Nitrite Urine Bilirubin Urine Urobilinogen Ur Leukocyte Esterase Urine Microscopic RBC Urine Microscopic WBC Ur Squamous Epith Cells Urine Bacteria Hyaline Casts Ur Culture Indicated? Urine Test Urine Opiates Screen Ur Buprenorphine Scrn Ur Barbiturates Screen Ur Phencyclidine Scrn Ur Amphetamines Screen U Benzodiazepines Scrn Urine Cocaine Screen U Marijuana (THC) Screen Ur Drug Screen Interp Lyme Total Antibody Negative Hepatitis A IgM Ab Hep Bs Antigen Hep B Core IgM Ab Hepatitis C Ab Screen 02/13/19 02/13/19 20:30 05:17 WBC 14.2 H RBC 4.18 Hgb 11.6 Hct 35.6 MCV 85.2 MCH 27.8 L MCHC 32.6 RDW 14.7 H Plt Count 215 MPV 10.6 Immature Gran % 0.3 Seg Neutrophils % 78.3 Lymphocytes % 10.5 Monocytes % 10.5 Eosinophils % 0.2 Basophils % 0.2 Neutrophils # 11.1 H Lymphocytes # 1.5 Monocytes # 1.5 H Eosinophils # 0.0 Basophils # 0.0 Sodium Potassium Chloride Carbon Dioxide BUN Creatinine Est GFR ( Amer) Est GFR (Non-Af Amer) BUN/Creatinine Ratio Glucose Calculated Osmolality Calcium Total Bilirubin Direct Bilirubin Indirect Bilirubin AST ALT Alkaline Phosphatase Serum Total Protein Albumin Globulin Albumin/Globulin Ratio Lipase Urine Color Urine Clarity Urine pH Ur Specific [place] Urine Protein Urine Glucose (UA) Urine Ketones Urine Blood Urine Nitrite Urine Bilirubin Urine Urobilinogen Ur Leukocyte Esterase Urine Microscopic RBC Urine Microscopic WBC Ur Squamous Epith Cells Urine Bacteria Hyaline Casts Ur Culture Indicated? Urine Test Urine Opiates Screen Ur Buprenorphine Scrn Ur Barbiturates Screen Ur Phencyclidine Scrn Ur Amphetamines Screen U Benzodiazepines Scrn Urine Cocaine Screen U Marijuana (THC) Screen Ur Drug Screen Interp Lyme Total Antibody Hepatitis A IgM Ab Nonreactive Hep Bs Antigen Nonreactive Hep B Core IgM Ab Nonreactive Hepatitis C Ab Screen Reactive H Preliminary micro results at discharge 02/14/19 00:01 Urine Culture - Preliminary Urine,Clean Catch Culture is incubating. - Impressions ITS Impressions Gallbladder Ultrasound 02/13/19 20:16 IMPRESSION: Gallstones in the gallbladder with borderline gallbladder wall thickening and positive sonographic Jain sign. In the appropriate clinical setting, findings may be consistent with cholecystitis. A nuclear medicine hepatobiliary scan is recommended for further evaluation. Fatty infiltration of the liver D/ / Reginaldo Hyman MD / Reginaldo Hyman MD Interpreting Provider: Reginaldo Hyman MD Abdomen/Pelvis CT 02/14/19 00:00 IMPRESSION: Chronic cholelithiasis. Gastroesophageal reflux. Mild thickening of the wall of distal esophagus. Suggest upper endoscopy in the near future on nonurgent basis. D/ / Zina Todd MD / Zina Todd MD Interpreting Provider: Zina Todd MD - Patient Status Disposition: Home, Self-Care Condition: Good Functional capacity at discharge: independent ambulation Overall status at discharge: patient is back to baseline - Discharge Instructions Follow Up With: Mary Martinez DO [Primary Care Provider] - Brayden Love MD [Non-Partnered Physician] - - Diet and Activity Activity: increase activity as tolerated Diet: advance to your usual diet
[2019-02-14] MEDS ORDERED: *HR* LORazepam 1 MG TABLET PO SCH (15:00)
[2019-02-14 15:18] VITALS: BP 94/64
[2019-02-15] MEDS ORDERED: Baclofen 10 MG TABLET PO SCH (09:00)
[2019-02-17 09:01] LABS: HCV Quant Interpretation DETECTED (Not Detected); HCV Quant Log 2.74 log IU/mL
== END 2019-02-14 17:15 | disposition home or self-care (01) ==
LOC: EMEROOARM 16:58 → 3ANU 16:58
PROVIDERS: ADMIT Surgery; ATTEND Surgery